=== PATIENT | female | born 1985 | race Caucasian/White ===

== ENCOUNTER 2017-01-12 04:26 | Inpatient (IN) | payer OTHER ==
[2017-01-12] MEDS ORDERED: LACTATED RINGERS 1,000 ML ONE ×2 (05:59→07:21)
[2017-01-12 07:53] LABS: Basophils % (Auto) 0.3 % (0.0-1.8); Eosinophils % (Auto) 1.7 % (0.0-4.3); Hemoglobin 10.9 gm/dl (10.1-14.3); Mean Corpuscular HGB Conc 33 % (30-34); Mean Corpuscular Hemoglobin 27 pg (28-32); Mean Corpuscular Volume 81 fl (79-97); Platelet Count 224 K/mm3 (140-440); Red Blood Count 4.09 M/mm3 (3.65-5.03); Red Cell Distribution Width 14.8 % (13.2-15.2); White Blood Count 8.1 K/mm3 (4.5-11.0)
[2017-01-12] MEDS ORDERED: LACTATED RINGERS 1,000 ML IV SCH (08:00)
[2017-01-12 08:32] LABS: Urine Drugs of Abuse Note Disclamer
[2017-01-12 08:44] LABS: HIV-1 Antigen p24 Non React (Non React); HIVR-1/2 Ab Non React (Non React)
[2017-01-12 09:13] VITALS: BP 113/74
--- NOTE | 2017-01-12 09:32 | Discharge Summary ---
Providers - Providers Date of Admission: 01/12/17 06:15 Attending physician: KALEE ARBOLEDA Primary care physician: TELEPHONE RECORDER Hospitalization Reason for admission: IUP@38 weeks, decreased FM, contractions Condition: Good Pertinent studies: 1. Obstetric ultrasound 2. Routine labs Procedures: 1. IV fluid hydration Hospital course: This is a 31-year-old female, 3 para 2, with estimated gestational age of 38 weeks who presented to triage complaining of decreased movement and abdominal pain. Of significance this patient has not had any care during this . Cervical exam was 2 cm on admission. heart rate tracing was category 2. She had an OB ultrasound estimated her gestational age at 38 weeks, amniotic fluid index was normal, infant was in the cephalic position, with a grade 1 placenta. She received IV fluid hydration and a biophysical profile was 10 out 10. She was observed on the labor and delivery unit for over 5 hours with no cervical change and a category 1 strip. At this point patient's home with labor precautions. Disposition: DC-01 TO HOME OR SELFCARE - Discharge Diagnoses (1) No care in current Status: Acute Qualifiers: Trimester: T (2) 38 weeks gestation of Status: Acute Core Measure Documentation - Palliative Care Palliative Care/ Comfort Measures: Not Applicable - Core Measures Any of the following diagnoses?: none Exam - Constitutional Vitals: Temp Pulse Resp BP Pulse Ox 98.7 F 83 18 113/74 100 01/12/17 07:13 01/12/17 09:16 01/12/17 07:13 01/12/17 09:16 01/12/17 05:21 - Respiratory Respiratory effort: normal - Cardiovascular Rhythm: regular - Abdominal Female genitourinary: Present: other (2/40/-3, soft, midline) - Integumentary Integumentary: Present: clear, warm, dry - Musculoskeletal Musculoskeletal: strength equal bilaterally Plan Activity: other (routine activity) Weight Bearing Status: Weight Bear as Tolerated (no lifting greater than 25 pounds) Diet: regular Follow up with: SYDNEY GUERRERO CNM [Advanced Practice Nurse] - 01/16/17 1:45 pm ( [facility])
--- NOTE | 2017-01-12 10:34 | Ultrasound Report ---
History: No care. OB sonogram Gestation: Single Position: Cephalic Amniotic Fluid: SHARMIN = 14.6 cm Placenta: Anterior Placental Grade: 1 Heart Rate: 132 BPM Cervical length: 3.2 cm (Normal > 3 cm) No anatomic survey of fetus performed BPD: 9.2 cm = 37 w 3 d HC: 33.1 cm = 37 w 5 d AC: 34 cm = 38 w d FL: 7.4 cm = 37 w 4 d HC/AC Ratio: 0.97 Estimated Weight: 3308 grams US Gest. Age = 37 w 4 d EDC: 01/29/17 BIOPHYSICAL PROFILE: 2 - breathing movements 2 - movements 2 - posture and tone 2 - Qualitative amniotic fluid volume 8 - TOTAL SCORE OF POSSIBLE 8 Heart Rate (bpm) 132
== END 2017-01-12 09:41 | disposition home or self-care (01) | DRG 781 ==
LOC: TRG 04:26 → LD 06:15 → TRG 06:15
PROVIDERS: ADMIT Obstetrics & Gynecology; ATTEND Obstetrics & Gynecology
DX: O36.8130 Decreased fetal movements, third trimester, not applicable or unspecified (principal); O26.893 Other specified pregnancy related conditions, third trimester; Z3A.38 38 weeks gestation of pregnancy; R10.9 Unspecified abdominal pain
CPT/HCPCS: 36415; 76816; 76819; 80307; 85025; 86592; 86706; 86762; 86803; 86850; 86900; 86901; 87116; 87806; J7120

== ENCOUNTER 2017-01-23 08:57 | Inpatient (IN) | payer OTHER ==
[2017-01-23 09:46] LABS: Hematocrit 34.2 % (30.3-42.9); Hemoglobin 11.1 gm/dl (10.1-14.3); Mean Corpuscular HGB Conc 32 % (30-34); Mean Corpuscular Volume 80 fl (79-97); Platelet Count 217 K/mm3 (140-440); Red Blood Count 4.28 M/mm3 (3.65-5.03); Red Cell Distribution Width 14.7 % (13.2-15.2); White Blood Count 9.5 K/mm3 (4.5-11.0)
[2017-01-23 09:48] LABS: Mean Corpuscular Hemoglobin 26 pg (28-32)
--- NOTE | 2017-01-23 09:56 | History and Physical Report ---
History of Present Illness Date of examination: 01/23/17 Date of admission: 01/23/2017 Chief complaint: contractions History of present illness: 31y/o @ 39+4 weeks established by an ultrasound received at 14 weeks ega. The patient has not had any further care during the . She was evaluated in triage previously for which she was found to be positive for GBS. She presents with regular uterine contractions and advanced cervical dilation of 5cm. Membranes remain intact. She denies any complications during the . She reports having a 37 and 35 week deliveries. Past History Past Medical History: no pertinent history Past Surgical History: no surgical history [employer] History: other (+GBS) Social history: - Obstetrical History Expected Date of Delivery: 01/26/17 Actual Gestation: 39 Week(s) 4 Day(s) : 3 Para: 2 Hx # Term Pregnancies: 1 Number of Pregnancies: 1 Spontaneous Abortions: 0 Induced : 0 Number of Living Children: 2 Medications and Allergies Allergies Allergy/AdvReac Type Severity Reaction Status Date / Time No Known Allergies Allergy Verified 01/12/17 05:58 Active Meds: Active Medications Ephedrine Sulfate (Ephedrine Sulfate) 10 mg IV Q2M PRN PRN Reason: Hypotension Stop: 01/23/17 09:18 Fentanyl (Sublimaze) 100 mcg IV Q2H PRN PRN Reason: Labor Pain Ampicillin Sodium (Polycillin/Ns 2 Gm/100 Ml) 2 gm in 100 mls @ 100 mls/hr IV ONCE ONE PRN Reason: Protocol Stop: 01/23/17 10:12 Lactated Ringer's (Lactated Ringers) 1,000 mls @ 125 mls/hr IV DIRECT ARIANNE Oxytocin/Sodium Chloride (Pitocin/Ns 20 Unit/1000ml Drip) 20 units in 1,000 mls @ 125 mls/hr IV DIRECT ARIANNE Oxytocin/Sodium Chloride (Pitocin/Ns 30 Unit/500ml) 30 units in 500 mls @ 1 mls /hr IV TITR ARIANNE; 1 MILLIUNITS/MIN PRN Reason: Protocol Lidocaine (Xylocaine 2%) 20 ml INFILTRATI ONCE ONE Stop: 01/23/17 09:14 Mineral Oil (Mineral Oil) 30 ml PO QHS PRN PRN Reason: Constipation Terbutaline Sulfate (Brethine) 0.25 mg SUB-Q ONCE PRN PRN Reason: Hyperstimulation/Hypertonicity Stop: 01/23/17 09:14 Terbutaline Sulfate (Brethine) 0.25 mg IVP ONCE PRN PRN Reason: Hyperstimulation/Hypertonicity Stop: 01/23/17 09:14 Review of Systems All systems: negative Genitourinary: contractions, no leakage of fluid - Vital Signs Vital signs: Vital Signs Pulse BP 103 H 111/79 01/23/17 09:06 01/23/17 09:06 Temp Pulse Resp BP Pulse Ox 100 H 111/79 98 01/23/17 09:50 01/23/17 09:06 01/23/17 09:50 - Physical Exam Breasts: Positive: deferred Cardiovascular: Regular rate Lungs: Positive: Clear to auscultation Abdomen: Positive: normal appearance Genitourinary (Female): Positive: normal external genitalia Results Result Diagrams: 01/23/17 09:25 Abnormal lab results 01/23/17 Range/Units 09:25 MCH 26 L (28-32) pg All other labs normal. Assessment and Plan - Patient Problems (1) Active labor at term Current Visit: Yes Status: Acute Plan to address problem: admit to L&D for labor (2) Group beta Strep positive Current Visit: Yes Status: Acute Plan to address problem: initiate antibiotics (3) No care in current Current Visit: No Status: Acute Qualifiers: Trimester: T
[2017-01-23] MEDS ORDERED: LACTATED RINGERS 1,000 ML IV SCH (10:30)
[2017-01-23] MEDS ORDERED: SUBLIMAZE IV PRN (10:30)
[2017-01-23] MEDS ORDERED: POLYCILLIN/NS 2 GM/100 ML 2 GM/100 ML BAG IV ONE (11:00)
[2017-01-23] MEDS ORDERED: ePHEDrine SULFATE IV PRN (11:00)
[2017-01-23] MEDS ORDERED: PITOCin/NS 20 UNIT/1000ML DRIP 20 UNITS/1,000 ML BAG IV SCH (11:00)
[2017-01-23] MEDS ORDERED: PITOCin/NS 30 UNIT/500ML 30 UNITS/500 ML BAG IV SCH (11:00)
[2017-01-23] MEDS ORDERED: XYLOCAINE 2% INFILTRATI ONE (11:00)
[2017-01-23] MEDS ORDERED: BRETHINE SUB-Q PRN (11:00)
[2017-01-23] MEDS ORDERED: BRETHINE IVP PRN (11:00)
[2017-01-23] MEDS ORDERED: MINERAL OIL PO PRN (11:00)
[2017-01-23] MEDS ORDERED: NARCAN 2 MG/2 ML IV PRN (12:01)
--- NOTE | 2017-01-23 12:01 | Anesthesia Consultation ---
Anesthesia Consult and Med Hx Date of service: 01/23/17 - Airway Anesthetic Teeth Evaluation: Good ROM Head & Neck: Adequate Mental/Hyoid Distance: Adequate Mallampati Class: Class II Intubation Access Assessment: Probably Good - Pulmonary Exam CTA: Yes - Cardiac Exam Cardiac Exam: RRR - Pre-Operative Health Status ASA Pre-Surgery Classification: ASA2, Emergency Proposed Anesthetic Plan: Epidural, Spinal - Pulmonary Hx Asthma: No COPD: No Hx Pneumonia: No - Cardiovascular System Hx Hypertension: No - Central Nervous System Hx Seizures: No Hx Psychiatric Problems: No - Endocrine Hx Renal Disease: No Hx End Stage Renal Disease: No Hx Hypothyroidism: No Hx Hyperthyroidism: No - Hematic Hx Anemia: No Hx Sickle Cell Disease: No - Other Systems Hx Alcohol Use: No
[2017-01-23 12:39] LABS: Urine Drugs of Abuse Note Disclamer
[2017-01-23] MEDS ORDERED: fentaNYL-BUPIV 2 MCG/ML-0.125% 200 MCG/100 ML BAG EPIDURAL SCH (13:00)
[2017-01-23] MEDS ORDERED: PHENERGAN PO PRN (13:37)
[2017-01-23] MEDS ORDERED: TUCKS PAD TP PRN (13:37)
[2017-01-23] MEDS ORDERED: PHENERGAN PR PRN (13:37)
[2017-01-23] MEDS ORDERED: ZOFRAN IV PRN (13:37)
[2017-01-23] MEDS ORDERED: LANSINOH TP PRN (13:37)
[2017-01-23] MEDS ORDERED: TYLENOL PO PRN (13:37)
[2017-01-23] MEDS ORDERED: MILK OF MAGNESIA PO PRN (13:37)
[2017-01-23] MEDS ORDERED: DULCOLAX PR PRN (13:37)
[2017-01-23] MEDS ORDERED: BENADRYL PO PRN (13:37)
[2017-01-23] MEDS ORDERED: NORCO 5/325 PO PRN (13:37)
--- NOTE | 2017-01-23 13:42 | Procedure Note ---
OB Delivery Note - Delivery Date of Delivery: 01/23/17 Surgeon: VINICIO CURRIE Estimated blood loss: 200cc - Vaginal Delivery presentation: vertex Delivery position: OA Intrapartum events: no care, meconium Delivery monitor: external FHT Route of delivery: Delivery placenta: spontaneous Delivery cord: 3 umbilical vessels Episiotomy: none Delivery laceration: none Anesthesia: epidural Delivery comments: Patient progressed to C/C/+1 and pushed to deliver a liveborn female infant with apgars of 8/9. After delivery of the head, the shoulders delivered easily. The cord was clamped and cut and the infant was taken to the warmer for further evaluation secondary to meconium stained fluid. The placenta delivered spontaneously intact with a 3VC. No lacerations. Weight 6lbs 7oz. EBL 200ml - A at 1 minute: 8 at 5 minutes: 9 Infant Gender: Female (weight 6lbs 7oz)
[2017-01-23] MEDS ORDERED: SODIUM CHLORIDE FLUSH SYRINGE 10 ML IV NR (14:00)
[2017-01-23] MEDS: MOTRIN PO SCH ×2 (15:56→23:52)
[2017-01-24 01:31] LABS: Hematocrit 31.7 % (30.3-42.9); Hemoglobin 10.4 gm/dl (10.1-14.3)
[2017-01-24] MEDS: MOTRIN PO SCH ×4 (05:41→23:02)
--- NOTE | 2017-01-24 08:24 | Progress Note ---
Assessment and Plan O: VSS AF PP H/H: 10.4/31.7 A: Stable PP Day 1 No care P: D/c in 48 hours Subjective - Subjective Date of service: 01/24/17 Patient reports: appetite normal, voiding normally, pain well controlled, ambulating normally : doing well, nursing well, bottle feeding Objective - Vital Signs Latest vital signs: Vital Signs Temp Pulse Resp BP BP Pulse Ox 01/24/17 01:25 98 F 74 18 105/59 01/23/17 20:56 98.9 F 89 18 108/52 01/23/17 15:00 97.7 F 77 18 111/62 01/23/17 14:40 78 116/59 01/23/17 14:12 77 115/56 01/23/17 13:58 91 H 116/59 01/23/17 13:42 101 H 111/74 01/23/17 13:34 96 H 100 01/23/17 13:29 96 H 100 01/23/17 13:24 86 100 01/23/17 13:19 96 H 100 01/23/17 13:14 90 100 01/23/17 13:13 83 111/73 01/23/17 13:09 80 100 01/23/17 13:04 84 100 01/23/17 12:59 91 H 100 01/23/17 12:57 85 116/73 01/23/17 12:54 92 H 100 01/23/17 12:49 86 100 01/23/17 12:44 98 H 100 01/23/17 12:42 89 109/60 01/23/17 12:39 92 H 100 01/23/17 12:37 88 114/72 01/23/17 12:34 88 100 01/23/17 12:29 90 100 01/23/17 12:27 90 136/74 01/23/17 12:24 98 H 100 01/23/17 12:19 92 H 100 01/23/17 12:14 95 H 99 01/23/17 12:09 98 H 99 01/23/17 12:04 91 H 98 01/23/17 12:02 86 112/73 01/23/17 11:59 94 H 98 01/23/17 11:57 96 H 113/70 01/23/17 11:55 100 H 113/67 01/23/17 11:54 109 H 100 01/23/17 11:53 96 H 112/70 01/23/17 11:52 99 H 109/68 01/23/17 11:51 99 H 122/71 01/23/17 11:49 100 H 115/67 100 01/23/17 11:47 99 H 120/72 01/23/17 11:46 109 H 120/82 01/23/17 11:44 115 H 100 01/23/17 11:39 108 H 146/60 100 01/23/17 11:34 86 98 01/23/17 11:29 94 H 99 01/23/17 11:25 102 H 104/59 01/23/17 11:24 100 H 99 01/23/17 11:11 118 H 99 01/23/17 11:09 83 118/58 01/23/17 11:06 86 98 01/23/17 11:01 114 H 100 01/23/17 10:56 93 H 99 01/23/17 10:54 108 H 114/73 01/23/17 10:51 90 99 01/23/17 10:47 97.3 F L 18 01/23/17 10:40 95 H 99 01/23/17 10:35 92 H 100 01/23/17 10:30 99 H 99 01/23/17 10:25 85 98 01/23/17 10:20 102 H 98 01/23/17 10:15 112 H 97 01/23/17 10:10 109 H 95 01/23/17 10:05 112 H 97 01/23/17 10:00 98 H 99 01/23/17 09:55 99 H 99 01/23/17 09:50 100 H 98 01/23/17 09:45 93 H 98 01/23/17 09:06 103 H 111/79 Intake and Output 01/23/17 01/24/17 01/24/17 22:59 06:59 14:59 Intake Total 240 480 Output Total 1950 Balance -1710 480 Intake: Intake, Free Water 240 480 Output: Urine 1950 Indwelling Catheter 900 Void 1050 Other: Total, Output Amount 600 # Voids Indwelling Catheter 1 Void 1 2 - Exam Breasts: Present: deferred Abdomen: Present: normal appearance, soft. Absent: distention, tenderness Uterus: Present: normal, firm, fundal height below umbilicus (2 below U, ML). Absent: bogginess, tenderness Extremities: Present: normal - Labs Labs: Abnormal lab results 01/23/17 Range/Units 09:25 MCH 26 L (28-32) pg
--- NOTE | 2017-01-24 08:47 | Discharge Summary ---
Providers - Providers Date of Admission: 01/23/17 10:01 Date of discharge: 01/25/17 Attending physician: VINICIO CURRIE Primary care physician: MULU PRINGLE MD Hospitalization Reason for admission: IUP at term (no care) Delivery: Episiotomy: none Laceration: none Other procedures: none complications: none Discharge diagnosis: IUP at term delivered baby: female Condition at discharge: Good Disposition: DC-01 TO HOME OR SELFCARE Plan - Discharge Medications Prescriptions: Ibuprofen [Motrin 600 MG tab] 600 mg PO Q6H #30 tablet - Provider Discharge Summary Activity: routine, no sex for 6 weeks, no heavy lifting 4 weeks, no strenuous exercise Additional instructions: [] Smoking cessation referral if applicable(refer to patient education folder for contact #) [] Refer to [facility] Booklet Call your doctor immediately for: * Fever > 100.5 * Heavy vaginal bleeding ( >1 pad per hour) * Severe persistent headache * Shortness of breath * Reddened, hot, painful area to leg or breast * Drainage or odor from incision. * Keep incision clean and dry at all times and follow doctor's instructions regarding bathing/showering - Follow up plan Follow up: MULU PRINGLE MD [Primary Care Provider] - VINICIO CURRIE MD [Staff Physician] - (RTO 4 weeks . [facility], [employer] [address] [place] [address] Rd. [phone]) Forms: Work/School Release Form
--- NOTE | 2017-01-24 14:21 | Progress Note ---
Subjective Date of service: 01/24/17 Interval history: 1st day after normal vaginal delivery Patient is in the bed, comfortable. Pain is well controlled with pain meds. Ambulated well. No residual neurological deficit. No anesthesia complications Objective - Constitutional Vitals: Vital Signs - 12hr 01/24/17 01/24/17 08:20 12:30 Temperature 97.9 F 97.9 F Pulse Rate 71 102 H Respiratory 19 19 Rate Blood Pressure 115/71 118/66 [Right] - Labs CBC & Chem 7: 01/24/17 01:16
[2017-01-25] MEDS: MOTRIN PO SCH ×2 (05:20→11:56)
[2017-01-25 09:31] VITALS: BP 102/64
== END 2017-01-25 17:00 | disposition home or self-care (01) | DRG 775 ==
LOC: TRG 08:57 → LD 10:01 → OB 14:59
PROVIDERS: ADMIT Obstetrics & Gynecology; ATTEND Obstetrics & Gynecology
PROC: 10E0XZZ Delivery of Products of Conception, External Approach (ICD-10-PCS; principal; 2017-01-23)
PROC: 3E0R3BZ Introduction of Anesthetic Agent into Spinal Canal, Percutaneous Approach (ICD-10-PCS; 2017-01-23)
PROC: 00HU33Z Insertion of Infusion Device into Spinal Canal, Percutaneous Approach (ICD-10-PCS; 2017-01-23)
DX: O99.824 Streptococcus B carrier state complicating childbirth (principal); Z3A.39 39 weeks gestation of pregnancy; Z37.0 Single live birth; O77.0 Labor and delivery complicated by meconium in amniotic fluid
CPT/HCPCS: 36415; 80307; 85014; 85018; 85027; 86592; 86850; 86900; 86901; 87591; 99211; G0463; J0290; J2590; J3010; J7120